=== PATIENT | male | born 1950 | race Caucasian/White ===

== ENCOUNTER 2021-11-04 14:13 | Emergency (ER) | payer MEDICARE, SELFPAY ==
[2021-11-04 14:25] VITALS: BP 159/75; PULSE 86; RESP 18; TEMP 37.1; O2SAT 100
--- NOTE | 2021-11-04 18:12 | ED.WOUNDLAC ---
HPI - Wound/Laceration General Chief Complaint: Wound/Laceration Stated Complaint: abscess Time Seen by Provider: 11/04/21 17:20 History of Present Illness HPI narrative: Patient is a 70-year-old male who presents ER with abscess to the left buttock. Reports has been ongoing over the last week. Went to see his PCP today who recommended he come to the ER to be evaluated. Denies fevers or chills or sweats. It has been spontaneously draining on its own. Does not believe she was bitten. Pain is worse with sitting on it. Patient is diabetic. Related Data Home Medications Medication Instructions Recorded Confirmed amoxicillin-pot clavulanate tablet 11/04/21 semaglutide [Ozempic] mg SUBCUT 11/04/21 Allergies Allergy/AdvReac Type Severity Reaction Status Date / Time No Known Allergies Allergy Unknown Verified 11/04/21 18:11 Review of Systems Review of Systems: All systems reviewed & are unremarkable except as noted in HPI and below Constitutional: Constitutional: Denies chills, Denies fever(s) and Denies weakness Respiratory: Respiratory: Denies cough Gastrointestinal: Gastrointestinal: Denies abdominal pain, Denies nausea and Denies vomiting Integumentary/Breasts: Skin/Breast: Denies pruritus and Reports erythema Comments: Draining abscess PMFSH Past Medical History Medical History (Updated 11/04/21 @ 18:17 by Dave Blake MD) Diabetes Hypertension Obstructive sleep apnea Surgical History Surgical History (Updated 11/04/21 @ 18:14 by Dave Blake MD) H/O toe surgery Social History Social History (Updated 11/04/21 @ 18:15 by Dave Blake MD) Smoking status: Never smoker Exam Narrative: GENERAL: Well-appearing, well-nourished, and in no acute distress. HEAD: Normocephalic, atraumatic. EXTREMITIES: Normal range of motion. No edema. SKIN: Warm, dry, abscess left buttock that is 7 x 6 cm with areas of previous drainage centrally. Induration noted without fluctuance. NEURO: Alert and oriented x3. PSYCH: Normal mood and affect. Course Course Emergency Course: Tolerated incision and drainage. Will start on Bactrim for home. Recommend follow-up with PCP. Patient declines [place] for home. Vital Signs Vital signs: Vital Signs Temperature 98.7 F 11/04/21 14:25 Pulse Rate 86 11/04/21 14:25 Respiratory Rate 18 11/04/21 14:25 Blood Pressure 159/75 H 11/04/21 14:25 Pulse Oximetry 100 11/04/21 14:25 Temperature 98.7 F 11/04/21 14:25 Pulse Rate 86 11/04/21 14:25 Respiratory Rate 18 11/04/21 14:25 Blood Pressure 159/75 H 11/04/21 14:25 Pulse Oximetry 100 11/04/21 14:25 Procedures Abscess I/D other: Date of Incision: 11/04/21 Time of Incision: 18:00 Local Anesthetic: lidocaine 1% and with epi Amount of anesthesia used (mL): 7 Technique: incised with #11 blade Packing used?: iodoform I&D Results: Pus Discharge Plan Discharge Clinical Impression: Abscess Patient Disposition: Home, Self-Care Condition: Stable Instructions: Antibiotic Form, Abscess (ED) Additional Instructions: Return to the ER if you have fever over 100.4 ?F, keep down food or water, you have increased pain to your buttock, you have additional concerns. Prescriptions: New sulfamethoxazole-trimethoprim [Bactrim DS] 800-160 mg tablet 1 tablet PO Q12H Qty: 20 RF: 0 No Action amoxicillin-pot clavulanate 875-125 mg tablet RF: 0 Ozempic 0.25 mg or 0.5 mg(2 mg/1.5 mL) pen injector SUBCUT RF: 0 Follow-up/Referrals: Ayden,Forrest Edmond MD [Primary Care Provider] - 1 Week
== END 2021-11-04 18:25 | disposition home or self-care (01) ==
PROVIDERS: Emergency Provider Emergency Medicine; PCP Internal Medicine
DX: L02.31 Cutaneous abscess of buttock (principal); E11.9 Type 2 diabetes mellitus without complications; I10 Essential (primary) hypertension; G47.33 Obstructive sleep apnea (adult) (pediatric); Z79.899 Other long term (current) drug therapy
CPT/HCPCS: 10061; 99283